=== PATIENT | female | born 1975 | race Caucasian/White ===

== ENCOUNTER 2023-11-16 07:42 | Emergency (ER) | payer OTHER, SELFPAY ==
--- NOTE | ~2023-11-16 | XR_ITS ---
EXAMINATION: XR shoulder RT min 2V DATE: 11/16/2023 08:23 INDICATION: Right shoulder pain. Fall. TECHNIQUE: 4 views of right shoulder were obtained. COMPARISON: None. FINDINGS: Bone alignment is normal. No fracture. There is mild osteoarthritis of acromioclavicular lenin int and glenohumeral joint. IMPRESSION: 1. Mild polyarticular osteoarthritis. Reviewed, dictated and finalized at location E. 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
--- NOTE | ~2023-11-16 | XR_ITS ---
EXAMINATION: [id number] DATE: 11/16/2023 08:23 INDICATION: Right chest pain. Fall. TECHNIQUE: A frontal view of the chest and 2 views on 4 radiographs of the right ribs were obtained. COMPARISON: None. FINDINGS: There is mild atelectasis in the lower lung zones. No pleural effusion or pneumothorax. The heart size is normal. IMPRESSION: 1. No rib fracture. Reviewed, dictated and finalized at location E. 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 No rib fracture.
--- NOTE | ~2023-11-16 | XR_ITS ---
EXAMINATION: XR elbow RT min 3V DATE: 11/16/2023 08:23 INDICATION: Right elbow pain. Fall. TECHNIQUE: 4 views of right elbow were obtained. COMPARISON: None. FINDINGS: Bone alignment is normal. No fracture. There is mild elbow joint osteoarthritis. No elbow j oint effusion. IMPRESSION: 1. Mild elbow joint osteoarthritis. Reviewed, dictated and finalized at location E. 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
[2023-11-16 07:42] VITALS: BP 153/87; PULSE 98; RESP 18; TEMP 36.7; O2SAT 99
--- NOTE | 2023-11-16 07:55 | ED.FALL ---
HPI - Fall General Chief Complaint: Fall Stated Complaint: fall; right elbow pain and right rib pain Time Seen by Provider: 11/16/23 07:54 Source: patient Mode of arrival: ambulatory Limitations: no limitations History of Present Illness HPI Narrative: Patient was turning around, somehow fell backward landed on the right side of her body, 1 day later started having pain at the back of the right elbow and right shoulder and right ribs. Patient came to work today, was asked to go to the emergency room to make sure nothing is broken. Patient denies other injuries. Related Data Home Medications Medication Instructions Recorded Confirmed famotidine 10 mg tablet 10 mg PO DAILY 11/16/23 11/16/23 Allergies Allergy/AdvReac Type Severity Reaction Status Date / Time No Known Allergies Allergy Verified 11/16/23 07:49 Review of Systems Review of Systems: All systems reviewed & are unremarkable except as noted in HPI and below Exam Narrative: General appearance: Well-developed, well-nourished Skin: Normal color Head: Normocephalic, nontraumatic Eyes: Clear conjunctiva ENT: Oropharynx normal, ears normal, nose normal Neck: Supple, nontender Chest and respiratory: Airway patent, no respiratory distress, no accessory muscle use Heart: Regular rate/rhythm Abdomen: Soft, nontender, no organomegaly, quiet bowel sounds Vascular: Normal peripheral pulses, normal capillary refill. Musculoskeletal: Bruises and contusion at the back of the right elbow, slight limited range of motion, right shoulder showed no deformity or bruises or swelling, slight limited range of motion, right chest laterally showed slight tenderness, no bruises or swelling or rash Neurologic: Alert and oriented ?3, BOOKY is normal as tested, no gross motor deficit Course Vital Signs Vital signs: Vital Signs Temperature 36.7 C 11/16/23 07:42 Pulse Rate 98 11/16/23 07:42 Respiratory Rate 18 11/16/23 07:42 Blood Pressure 153/87 H 11/16/23 07:42 Pulse Oximetry 99 11/16/23 07:42 Oxygen Delivery Room Air 11/16/23 07:42 Temperature 36.7 C 11/16/23 07:42 Pulse Rate 98 11/16/23 07:42 Respiratory Rate 18 11/16/23 07:42 Blood Pressure 153/87 H 11/16/23 07:42 Pulse Oximetry 99 03/04/24 07:42 Oxygen Delivery Room Air 11/16/23 07:42 MDM - Fall Imaging Data Attestation: I personally reviewed and interpreted this imaging study as follows: Radiologist's impression: Impressions Elbow X-Ray 11/16/23 08:25 IMPRESSION: 1. Mild elbow joint osteoarthritis. Ribs w/Chest X-Ray 11/16/23 08:26 IMPRESSION: 1. No rib fracture. Shoulder X-Ray 11/16/23 08:28 IMPRESSION: 1. Mild polyarticular osteoarthritis. Critical Care Time Critical Care Time Critical Care Time: No Discharge Plan Discharge Clinical Impression: Contusion of right upper extremity, Chest wall contusion Patient Disposition: Home, Self-Care Condition: Stable Instructions: Contusion in Adults (ED) Additional Instructions: Return if symptoms are worsening , call your family physician for appointment, take Tylenol as as needed for aches and pain, continue home medications. Take ibuprofen 600 every 6 hours as needed Prescriptions: No Action famotidine 10 mg Tablet 10 mg PO DAILY Follow-up/Referrals: Annia,ALVINA Murry [Primary Care Provider] - Stand Alone Forms: Work/School Release IP
[2023-11-16] MEDS: IBUPROFEN 600 MG TABLET PO (07:59)
== END 2023-11-16 08:38 | disposition home or self-care (01) ==
LOC: CHSED 08:32
PROVIDERS: Emergency Provider Emergency Medicine; PCP Physician Assistant
DX: S50.01XA Contusion of right elbow, initial encounter (principal); S20.219A Contusion of unspecified front wall of thorax, initial encounter; Z79.899 Other long term (current) drug therapy; W18.30XA Fall on same level, unspecified, initial encounter
CPT/HCPCS: 71101; 73030; 73080; 99284; A9270